=== PATIENT | female | born 1950 | race Caucasian/White ===

== ENCOUNTER 2025-06-16 11:33 | Outpatient (CLI) | payer MEDICARE, OTHER, SELFPAY ==
--- NOTE | ~2025-06-16 | XR_ITS ---
XR finger 1st LT min 2V 06/16/2025 11:56 INDICATION: Right first finger pain PROCEDURE: 3 views right first finger COMPARISON: No prior studies FINDINGS: Fracture, dislocation or subluxation is not identified. There is polyarticular osteoarthrit is most advanced at the first carpal metacarpal joint. The soft tissues appear within normal limits. No foreign bodies are identified. 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 Reviewed, dictated and finalized at location A.
== END 2025-06-16 11:34 | disposition home or self-care (01) ==
PROVIDERS: PCP Physician Assistant; Visit Provider Physician Assistant
DX: M18.12 Unilateral primary osteoarthritis of first carpometacarpal joint, left hand (principal); G89.29 Other chronic pain
CPT/HCPCS: 73140